=== PATIENT | male | born 1960 | race Caucasian/White ===

== ENCOUNTER 2021-12-01 11:47 | Emergency (ER) | payer BC ==
[~2021-12-01 11:47] MED LIST: LISINOPRIL10 MG PO
[2021-12-01 13:39] LABS: HEMOGLOBIN 14.6 gm/dl (14.0-17.5); RED BLOOD COUNT 4.62 M/UL (4.20-5.50); WHITE BLOOD COUNT 6.9 K/UL (4.5-11.0)
[2021-12-01 14:08] LABS: BUN/CREATININE RATIO 20 (0-10)
[2021-12-01] MEDS ORDERED: VOLTAREN ARTHRI20 GM TP (16:40)
[2021-12-01] MEDS ORDERED: MEDROL DOSEPAK 24 MG PO (16:40)
== END 2021-12-01 17:24 | disposition home or self-care (01) ==
LOC: ER1 11:47
PROVIDERS: Physician Assistant Medical
DX: M54.10 Radiculopathy, site unspecified (principal); M79.632 Pain in left forearm; I10 Essential (primary) hypertension; F17.210 Nicotine dependence, cigarettes, uncomplicated
CPT/HCPCS: 71045; 72125; 73090; 80053; 82550; 82553; 84484; 85025; 93005; 96374; 99284; J1885